=== PATIENT | male | born 1965 | race Caucasian/White ===

== ENCOUNTER 2018-01-02 07:01 | Day surgery (SDC) | payer BC ==
[2018-01-02] MEDS ORDERED: PROPOFOL 500 MG/50 ML EMU IV ONE (07:22)
[2018-01-02] MEDS ORDERED: LIDOCAINE HCL 1% MPF SOL ONE (07:22)
[2018-01-02 08:44] VITALS: RESP 16; O2SAT 96
[2018-01-02 08:58] VITALS: BP 134/87; PULSE 73; TEMP 98
== END 2018-01-02 09:19 | disposition home or self-care (01) ==
LOC: SURG 07:01
PROVIDERS: ATTEND Surgery
DX: Z12.11 Encounter for screening for malignant neoplasm of colon (principal)
CPT/HCPCS: J2001; J2704